=== PATIENT | male | born 1985 | race Caucasian/White ===

== ENCOUNTER → 2016-06-16 | Emergency (ER) | payer OTHER ==
[~2016-06-16] VITALS: Ht 170.2 cm; Wt 79.4 kg
[~2016-06-16] MED LIST: BACTDSTA PO; CLIN1CAP5 PO; CLINDAMYCIN 150 MG CAP PO ONE; IBUP-1114 PO; OSEL75CA PO; PROZ20CA11 PO; VICO7.5T11 PO; XANA1TAB2 PO; XANA2TAB2 PO
[2016-06-16 21:38] VITALS: BP 133/85
== END | disposition home or self-care (01) ==
LOC: M ED 22:56
DX: K04.7 Periapical abscess without sinus (principal); K02.9 Dental caries, unspecified

== ENCOUNTER 2018-01-22 16:33 | Emergency (ER) | payer SELFPAY, OTHER ==
[2018-01-22] MEDS: NS 1,000 ML IV (17:45)
[2018-01-22 18:10] LABS: BASO # 0.1 10^3/uL (0.0-0.2); BASO % 0.3 % (0.0-1.0); EOS # 0.1 10^3/uL (0.0-0.50); EOS % 0.7 % (0.0-3.0); IMMATURE GRANULOCYTE % 0.5 % (0-3.0); LYMPH # 1.6 10^3/uL (1.5-4.5); LYMPH % 9.6 % (24.0-44.0); MEAN CORPUSCULAR HEMOGLOBIN 32.3 pg (27.0-33.0); MEAN CORPUSCULAR HGB CONC 34.9 g/dl (32.0-36.5); MEAN CORPUSCULAR VOLUME 92.5 fl (80.0-96.0); MONO # 1.4 10^3/uL (0.0-0.8); MONO % 8.2 % (0.0-5.0); NEUTROPHILS # 13.7 10^3/uL (1.8-7.7); NEUTROPHILS % 80.7 % (36.0-66.0); PLATELET COUNT, AUTOMATED 223 10^3/uL (150-450); RED BLOOD COUNT 4.65 10^6/uL (4.30-6.10); WHITE BLOOD COUNT 16.9 10^3/uL (4.0-10.0)
[2018-01-22 18:35] LABS: ERYTHROCYTE SEDIMENTATION RATE 54 mm/hr (0-15)
[2018-01-22 18:36] LABS: ANION GAP 7 MEQ/L (8-16); BLOOD UREA NITROGEN 11 MG/DL (7-18); CALCIUM LEVEL 8.8 MG/DL (8.5-10.1); CARBON DIOXIDE LEVEL 31 MEQ/L (21-32); CHLORIDE LEVEL 101 MEQ/L (98-107); CREATININE FOR GFR 0.87 MG/DL (0.70-1.30); GLOMERULAR FILTRATION RATE > 60.0 (>60); GLUCOSE, FASTING 107 MG/DL (70-100); POTASSIUM SERUM 3.8 MEQ/L (3.5-5.1); SODIUM LEVEL 139 MEQ/L (136-145)
[2018-01-22] MEDS: MORPHINE 4 MG/ML 1ML VIAL/SYRINGE (J2270) IV ×2 (18:36→19:47)
[2018-01-22] MEDS: CLINDAMYCIN 900 MG in APPROPRIATE DILUENT 1 EA IV (18:36)
[2018-01-22 18:52] LABS: LACTIC ACID SEPSIS PROTOCOL 1.4 MMOL/L (0.4-2.0)
[2018-01-22] MEDS ORDERED: ISOVUE-370 76% 100ML VIAL (Q9967) As Ordered (19:00)
[2018-01-22] MEDS: OXYCODONE/APAP 5MG/325MG(BULK FOR ED) 1 TABLET PO (20:32)
== END 2018-01-22 20:49 | disposition home or self-care (01) ==
LOC: M ED 16:33
DX: L02.01 Cutaneous abscess of face (principal); L03.211 Cellulitis of face; D72.829 Elevated white blood cell count, unspecified; Z72.0 Tobacco use; Z79.899 Other long term (current) drug therapy; Z88.1 Allergy status to other antibiotic agents
CPT/HCPCS: J2270

== ENCOUNTER 2021-10-28 01:53 | Emergency (ER) | payer SELFPAY ==
[~2021-10-28] VITALS: Ht 172.7 cm; Wt 78.9 kg
[~2021-10-28 01:53] MED LIST changes: -BACTDSTA PO; +CLEO300C2 PO; +CLIN150C17 PO; -CLIN1CAP5 PO; -CLINDAMYCIN 150 MG CAP PO ONE; +NAPR-837 PO; +NAPR-885 PO; +OXYC1TAB23 PO; +SULF1TAB23 PO; -VICO7.5T11 PO; +VICO7.5T12 PO
[2021-10-28 01:56] VITALS: BP 134/83
== END 2021-10-28 05:51 | disposition left against medical advice (07) ==
LOC: M ED 01:53
DX: Z53.21 Procedure and treatment not carried out due to patient leaving prior to being seen by health care provider (principal)

== ENCOUNTER 2024-04-29 10:40 | Emergency (ER) | payer OTHER ==
[~2024-04-29] VITALS: Ht 172.7 cm; Wt 71.5 kg
[~2024-04-29 10:40] MED LIST changes: -CEPH500C PO; -SUBO12MI SL; -SUBO4MIS SL
[2024-04-29] MEDS ORDERED: SUBO4MIS SL (10:46)
[2024-04-29] MEDS ORDERED: SUBO12MI SL (10:46)
[2024-04-29] MEDS ORDERED: CEPH500C PO (11:41)
[2024-04-29 11:49] VITALS: BP 139/82; TEMP 97.4; O2SAT 97
== END 2024-04-29 11:57 | disposition home or self-care (01) ==
LOC: M ED 10:40
DX: R68.84 Jaw pain (principal); S02.602A Fracture of unspecified part of body of left mandible, initial encounter for closed fracture; S02.601A Fracture of unspecified part of body of right mandible, initial encounter for closed fracture; W22.8XXA Striking against or struck by other objects, initial encounter; Z88.2 Allergy status to sulfonamides; Z79.899 Other long term (current) drug therapy; Z79.2 Long term (current) use of antibiotics; Y92.9 Unspecified place or not applicable; Y93.89 Activity, other specified; Y99.9 Unspecified external cause status

== ENCOUNTER → 2024-04-29 | Outpatient (CLI) | payer OTHER ==
[~2024-04-29] MED LIST changes: +CEPH500C PO; +SUBO12MI SL; +SUBO4MIS SL
== END ==
LOC: M RAD 10:17
PROVIDERS: ATTEND Internal Medicine Addiction Medicine
DX: S02.609A Fracture of mandible, unspecified, initial encounter for closed fracture (principal); X58.XXXA Exposure to other specified factors, initial encounter; Y92.9 Unspecified place or not applicable